=== PATIENT | female | born 1955 | race Caucasian/White ===

== ENCOUNTER → 2022-12-25 | Outpatient (CLI) | payer MEDICARE ==
[2022-12-25 15:38] LABS: BASO # 0.1 10^3/uL (0.0-0.2); BASO % 0.8 % (0.0-1.0); EOS # 0.2 10^3/uL (0.0-0.5); EOS % 2.6 % (0.0-3.0); HEMATOCRIT 44.6 % (36.0-47.0); HEMOGLOBIN 13.9 g/dl (12.0-15.5); LYMPH # 1.7 10^3/uL (1.5-5.0); LYMPH % 20.1 % (24.0-44.0); MEAN CORPUSCULAR HEMOGLOBIN 30.8 pg (27.0-33.0); MEAN CORPUSCULAR HGB CONC 31.2 g/dl (32.0-36.5); MEAN CORPUSCULAR VOLUME 98.7 fl (80.0-96.0); MONO # 0.9 10^3/uL (0.0-0.8); MONO % 10.8 % (2.0-8.0); NEUTROPHILS # 5.4 10^3/uL (1.5-8.5); NEUTROPHILS % 65.2 % (36.0-66.0); PLATELET COUNT, AUTOMATED 262 10^3/uL (150-450); RED BLOOD COUNT 4.52 10^6/uL (4.00-5.40); WHITE BLOOD COUNT 8.3 10^3/uL (4.0-10.0)
[2022-12-25 15:52] LABS: INR 0.95; PROTHROMBIN TIME 12.9 SECONDS (12.5-14.5)
[2022-12-25 16:03] LABS: BLOOD UREA NITROGEN 15 MG/DL (9-23); CALCIUM LEVEL 9.4 MG/DL (8.3-10.6); CARBON DIOXIDE LEVEL 34 MMOL/L (20-31); CHLORIDE LEVEL 104 MMOL/L (98-107); CREATININE FOR GFR 0.69 MG/DL (0.55-1.30); GLOMERULAR FILTRATION RATE > 60.0 (>45); GLUCOSE, FASTING 81 MG/DL (74-106); POTASSIUM SERUM 4.4 MMOL/L (3.5-5.1); SODIUM LEVEL 142 MMOL/L (136-145)
== END ==
LOC: M PLALAB 14:54
PROVIDERS: ATTEND Family Medicine
DX: Z01.810 Encounter for preprocedural cardiovascular examination (principal)

== ENCOUNTER 2023-01-07 15:20 | Observation (INO) | payer MEDICARE, OTHER ==
[~2023-01-07] VITALS: Ht 165.1 cm; Wt 122.5 kg
[2023-01-07 16:27] LABS: BASO # 0.1 10^3/uL (0.0-0.2); BASO % 0.5 % (0.0-1.0); EOS # 0.1 10^3/uL (0.0-0.5); EOS % 0.7 % (0.0-3.0); HEMATOCRIT 41.3 % (36.0-47.0); HEMOGLOBIN 13.1 g/dl (12.0-15.5); LYMPH # 1.2 10^3/uL (1.5-5.0); LYMPH % 7.3 % (24.0-44.0); MEAN CORPUSCULAR HEMOGLOBIN 30.8 pg (27.0-33.0); MEAN CORPUSCULAR HGB CONC 31.7 g/dl (32.0-36.5); MEAN CORPUSCULAR VOLUME 96.9 fl (80.0-96.0); MONO # 1.4 10^3/uL (0.0-0.8); MONO % 8.9 % (2.0-8.0); NEUTROPHILS # 13.2 10^3/uL (1.5-8.5); NEUTROPHILS % 82.1 % (36.0-66.0); PLATELET COUNT, AUTOMATED 230 10^3/uL (150-450); RED BLOOD COUNT 4.26 10^6/uL (4.00-5.40); WHITE BLOOD COUNT 16.1 10^3/uL (4.0-10.0)
[2023-01-07 16:54] LABS: LIPASE 19 U/L (12-53)
[2023-01-07 16:57] LABS: ALBUMIN 3.4 G/DL (3.2-5.2); ALKALINE PHOSPHATASE 79 U/L (46-116); ALT/SGPT 14 U/L (7.0-40); AST/SGOT 12 U/L (<34); BILIRUBIN,DIRECT 0.3 MG/DL (<0.4); BILIRUBIN,TOTAL 0.9 MG/DL (0.3-1.2); BLOOD UREA NITROGEN 14 MG/DL (9-23); CALCIUM LEVEL 8.9 MG/DL (8.3-10.6); CARBON DIOXIDE LEVEL 28 MMOL/L (20-31); CHLORIDE LEVEL 103 MMOL/L (98-107); CREATININE FOR GFR 0.77 MG/DL (0.55-1.30); GLOMERULAR FILTRATION RATE > 60.0 (>45); GLUCOSE, FASTING 102 MG/DL (74-106); POTASSIUM SERUM 4.5 MMOL/L (3.5-5.1); SODIUM LEVEL 140 MMOL/L (136-145); TOTAL PROTEIN 6.8 G/DL (5.7-8.2)
[2023-01-07] MEDS ORDERED: GABA600T4 PO (18:41)
[2023-01-07] MEDS ORDERED: TRAM50TA2 PO (18:41)
[2023-01-07] MEDS ORDERED: VENTAER INH (18:41)
[2023-01-07] MEDS ORDERED: SIMV20TA22 PO (18:41)
[2023-01-07] MEDS ORDERED: HYDR12CA PO (18:41)
[2023-01-07] MEDS ORDERED: NABU-73 PO (18:41)
[2023-01-07] MEDS ORDERED: FLUT1INH3 INH (18:41)
[2023-01-07] MEDS ORDERED: ONDANSETRON 4MG 2ML VIAL IV ONE (20:50)
[2023-01-07] MEDS ORDERED: MORPHINE 4 MG/ML 1ML VIAL IV ONE (20:50)
[2023-01-07] MEDS ORDERED: MORPHINE 4 MG/ML 1ML VIAL As Ordered ONE (20:52)
[2023-01-07] MEDS ORDERED: ONDANSETRON 4MG 2ML VIAL As Ordered ONE ×2 (20:52→23:46)
[2023-01-07] MEDS ORDERED: NS 1,000 ML IV ONE (21:00)
[2023-01-07] MEDS ORDERED: ISOVUE-370 76% 100ML VIAL As Ordered ONE (21:23)
[2023-01-07] MEDS ORDERED: PIPERACILLIN/TAZOBACTAM SOD 3.375 GM in D5W MINI-BAG PLUS 50 ML IV ONE (22:55)
[2023-01-07] MEDS ORDERED: LIDOCAINE 2% INJ 100 MG/5 ML SYRINGE As Ordered ONE (23:34)
[2023-01-07] MEDS ORDERED: propofoL 200 MG/20 ML VIAL As Ordered ONE (23:34)
[2023-01-07] MEDS ORDERED: ROCURONIUM BROMIDE 50MG/5ML VIAL As Ordered ONE (23:34)
[2023-01-07] MEDS ORDERED: fentaNYL 250 MCG/5 ML INJECTION As Ordered ONE (23:35)
[2023-01-07] MEDS ORDERED: MIDAZOLAM INJ 2MG/2ML VIAL As Ordered ONE (23:35)
[2023-01-07] MEDS ORDERED: LIDOCAINE 2% 100MG/5ML SDV (FOR ANES.) As Ordered ONE (23:37)
[2023-01-07] MEDS ORDERED: SUGAMMADEX SODIUM 500 MG/5 ML VIAL (BRIDION) As Ordered ONE (23:46)
[2023-01-07] MEDS ORDERED: ACETAMINOPHEN 1000MG 100ML IV BAG As Ordered ONE (23:46)
[2023-01-07] MEDS ORDERED: KETOROLAC 60MG 2ML VIAL As Ordered ONE (23:46)
[2023-01-07 23:54] LABS: RSV AMPLIFICATION NEGATIVE (NEGATIVE)
[2023-01-08] VITALS (8 sets, daily range): BP systolic 126–147; BP diastolic 62–81; TEMP 97.2–98.1; O2SAT 90–94
[2023-01-08] MEDS ORDERED: LABETALOL 100MG/20ML VIAL As Ordered ONE (01:09)
[2023-01-08] MEDS: NS 1,000 ML IV SCH ×3 (02:30→13:45)
[2023-01-08] MEDS ORDERED: MEPERIDINE 25 MG/ML 1ML VIAL IV PRN (03:30)
[2023-01-08] MEDS ORDERED: fentaNYL 100 MCG/2 ML INJECTION IV PRN (03:30)
[2023-01-08] MEDS ORDERED: LR 1,000 ML IV SCH (03:30)
[2023-01-08] MEDS ORDERED: METOCLOPRAMIDE INJ 10MG/2ML VIAL IV PRN (03:30)
[2023-01-08] MEDS ORDERED: ONDANSETRON 4MG 2ML VIAL IV PRN (03:30)
[2023-01-08] MEDS ORDERED: PERCOCET 5MG/325MG TAB PO PRN (03:30)
[2023-01-08] MEDS ORDERED: MORPHINE 4 MG/ML 1ML VIAL IV PRN (03:45)
[2023-01-08] MEDS ORDERED: MORPHINE 2 MG/ML 1ML VIAL IV PRN (03:45)
[2023-01-08] MEDS: PIPERACILLIN/TAZOBACTAM SOD 3.375 GM in D5W MINI-BAG PLUS 50 ML IV SCH ×2 (05:25→11:19)
[2023-01-08] MEDS: KETOROLAC 30 MG/ML 1ML VIAL IV SCH ×2 (06:24→11:20)
[2023-01-08] MEDS ORDERED: ADVI200T PO (08:48)
[2023-01-08] MEDS ORDERED: HOME MED LIST COMPLETE! XX SCH (08:50)
== END 2023-01-08 16:31 | disposition home or self-care (01) ==
LOC: M ED 15:20 → INTOOBSV 15:21 → M PM&R 15:21 → M ED 23:57 → M PM&R 01-08 03:00 → UNDOADMIN 01-08 03:00 → M PM&R 01-08 03:21 → M MSPAV 01-08 03:21 → UNDODISIN 01-08 04:41
PROVIDERS: ADMIT Surgery; ATTEND Surgery
DX: K35.30 Acute appendicitis with localized peritonitis, without perforation or gangrene (principal); M25.50 Pain in unspecified joint; J45.909 Unspecified asthma, uncomplicated; R42 Dizziness and giddiness; G47.33 Obstructive sleep apnea (adult) (pediatric); M54.9 Dorsalgia, unspecified; R51.9 Headache, unspecified; Z88.1 Allergy status to other antibiotic agents; Z79.899 Other long term (current) drug therapy; Z96.82 Presence of neurostimulator
CPT/HCPCS: 36415; 44970; 74177; 80048; 80076; 83605; 83690; 85025; 87040; 87631; 88304; 96365; 96374; 96375; 96376; 99284; G0378; J0131; J0665; J1100; J1885; J1920; J2250; J2405; J2543; J3010; Q9967

== ENCOUNTER → 2023-02-24 | Outpatient (CLI) | payer MEDICARE, OTHER ==
[~2023-02-24] MED LIST: ADVI200T PO; FLUT1INH3 INH; GABA600T4 PO; HYDR12CA PO; NABU-73 PO; SIMV20TA22 PO; TRAM50TA2 PO; VENTAER INH
== END ==
LOC: M CARPUL 08:44 → EDUNIT# 09:30
PROVIDERS: ATTEND Family Medicine
DX: R01.1 Cardiac murmur, unspecified (principal)

== ENCOUNTER → 2023-04-14 | Outpatient (CLI) | payer MEDICARE, OTHER ==
[2023-04-14 16:58] LABS: BLOOD UREA NITROGEN 18 MG/DL (9-23); CREATININE FOR GFR 0.81 MG/DL (0.55-1.30); GLOMERULAR FILTRATION RATE > 60.0 (>45)
== END ==
LOC: M PLALAB 14:50
PROVIDERS: ATTEND Pain Medicine Interventional Pain Medicine
DX: M96.1 Postlaminectomy syndrome, not elsewhere classified (principal)

== ENCOUNTER → 2023-04-21 | Outpatient (CLI) | payer MEDICARE, OTHER ==
[~2023-04-21] MED LIST changes: +ISOVUE-370 76% 100ML VIAL As Ordered ONE
== END ==
LOC: M RAD 12:44
PROVIDERS: ATTEND Pain Medicine Interventional Pain Medicine
DX: M96.1 Postlaminectomy syndrome, not elsewhere classified (principal)
CPT/HCPCS: 72132; Q9967

== ENCOUNTER → 2023-05-20 | Outpatient (CLI) | payer MEDICARE, OTHER ==
[~2023-05-20] MED LIST changes: -ISOVUE-370 76% 100ML VIAL As Ordered ONE
== END ==
LOC: M PLAIMG 13:01
PROVIDERS: ATTEND Family Medicine
DX: R05.1 Acute cough (principal)

== ENCOUNTER → 2023-06-22 | Outpatient (CLI) | payer MEDICARE | LOC: M CARPUL 09:31 | PROVIDERS: ATTEND Family Medicine | DX: J45.909 Unspecified asthma, uncomplicated (principal) ==

== ENCOUNTER → 2023-07-29 | Outpatient (REF) | payer MEDICARE | LOC: EEVIPCON 16:28 → M LAB REF 16:28 | PROVIDERS: ATTEND Podiatrist | DX: L03.039 Cellulitis of unspecified toe (principal) ==

== ENCOUNTER 2023-08-24 10:38 | Inpatient (IN) | payer MEDICARE ==
[2023-08-24] VITALS (7 sets, daily range): BP systolic 106–142; BP diastolic 54–77; TEMP 99–101.3; O2SAT 88–93
[~2023-08-24] VITALS: Ht 165.1 cm; Wt 114.0 kg
[2023-08-24 11:57] LABS: RSV AMPLIFICATION NEGATIVE (NEGATIVE)
[2023-08-24] MEDS: NS 1,000 ML IV ONE ×2 (13:22→17:41)
[2023-08-24] MEDS: MORPHINE 4 MG/ML 1ML VIAL IV ONE (13:22)
[2023-08-24 13:42] LABS: ERYTHROCYTE SEDIMENTATION RATE > 130 mm/hr (0-30)
[2023-08-24 13:58] LABS: ALBUMIN 3.1 G/DL (3.2-5.2); ALKALINE PHOSPHATASE 95 U/L (46-116); ALT/SGPT 60 U/L (7.0-40); AST/SGOT 38 U/L (<34); BILIRUBIN,DIRECT 0.2 MG/DL (<0.4); BILIRUBIN,TOTAL 0.5 MG/DL (0.3-1.2); BLOOD UREA NITROGEN 17 MG/DL (9-23); CALCIUM LEVEL 8.4 MG/DL (8.3-10.6); CARBON DIOXIDE LEVEL 28 MMOL/L (20-31); CHLORIDE LEVEL 100 MMOL/L (98-107); CREATININE FOR GFR 0.65 MG/DL (0.55-1.30); GLOMERULAR FILTRATION RATE > 60.0 (>45); GLUCOSE, FASTING 140 MG/DL (74-106); POTASSIUM SERUM 3.5 MMOL/L (3.5-5.1); SODIUM LEVEL 137 MMOL/L (136-145); TOTAL PROTEIN 6.6 G/DL (5.7-8.2)
[2023-08-24 15:18] LABS: BASO # 0.1 10^3/uL (0.0-0.2); BASO % 0.7 % (0.0-1.0); EOS # 0.1 10^3/uL (0.0-0.5); EOS % 1.3 % (0.0-3.0); HEMATOCRIT 42.1 % (36.0-47.0); HEMOGLOBIN 13.5 g/dl (12.0-15.5); LYMPH # 0.8 10^3/uL (1.5-5.0); LYMPH % 7.7 % (24.0-44.0); MEAN CORPUSCULAR HEMOGLOBIN 30.2 pg (27.0-33.0); MEAN CORPUSCULAR HGB CONC 32.1 g/dl (32.0-36.5); MEAN CORPUSCULAR VOLUME 94.2 fl (80.0-96.0); MONO # 0.7 10^3/uL (0.0-0.8); NEUTROPHILS # 8.5 10^3/uL (1.5-8.5); NEUTROPHILS % 82.3 % (36.0-66.0); PLATELET COUNT, AUTOMATED 199 10^3/uL (150-450); RED BLOOD COUNT 4.47 10^6/uL (4.00-5.40); WHITE BLOOD COUNT 10.4 10^3/uL (4.0-10.0)
[2023-08-24] MEDS ORDERED: VANCOMYCIN HCL 2,000 MG in IV FLUID PLACE HOLDER 1 EA IV ONE (15:25)
[2023-08-24] MEDS ORDERED: ENOXAPARIN 40MG/0.4ML SYRINGE (J1650 PER 10MG) SC ONE ×2 (15:45)
[2023-08-24] MEDS ORDERED: IPRATROPIUM 0.5MG/ALBUTEROL 2.5MG INH SOL UD 3ML (DUONEB) NEB PRN (15:50)
[2023-08-24] MEDS ORDERED: KETOROLAC 30 MG/ML 1ML VIAL IV ONE (15:50)
[2023-08-24] MEDS: VANCOMYCIN HCL 1,000 MG, VIAL MATE ADAPTER 1 EACH in D5W 250 ML IV ONE ×2 (15:52→17:44)
[2023-08-24] MEDS ORDERED: GABAPENTIN 400MG CAP PO SCH (16:00)
[2023-08-24] MEDS ORDERED: NS 1,000 ML IV ONE (16:20)
[2023-08-24] MEDS ORDERED: ACETAMINOPHEN TAB 650MG DOSE (2X325MG) PO PRN (16:20)
[2023-08-24] MEDS ORDERED: ONDANSETRON 4MG 2ML VIAL IV PRN (16:20)
[2023-08-24] MEDS ORDERED: KETOROLAC 30 MG/ML 1ML VIAL IV PRN ×2 (16:25→22:00)
[2023-08-24] MEDS ORDERED: VITA500030 PO (16:34)
[2023-08-24] MEDS ORDERED: PROB250C PO (16:34)
[2023-08-24] MEDS ORDERED: MAGN400C PO (16:34)
[2023-08-24] MEDS ORDERED: LORA-1041 PO (16:34)
[2023-08-24] MEDS ORDERED: SYMB16INH INH (16:34)
[2023-08-24] MEDS ORDERED: ACET-897 PO (16:34)
[2023-08-24] MEDS ORDERED: CVS5000S2 SL (16:34)
[2023-08-24] MEDS ORDERED: CHEL50TA2 PO (16:34)
[2023-08-24] MEDS ORDERED: MUCI30TA5 PO (16:34)
[2023-08-24] MEDS ORDERED: VITA100065 PO (16:34)
[2023-08-24] MEDS ORDERED: CALC-190 PO (16:34)
[2023-08-24] MEDS ORDERED: TUME1CAP PO (16:34)
[2023-08-24] MEDS ORDERED: VITA1TAB78 PO (16:34)
[2023-08-24] MEDS ORDERED: GLUCTAB31 PO (16:34)
[2023-08-24] MEDS ORDERED: VITA400C83 PO (16:34)
[2023-08-24] MEDS ORDERED: APPLTAB2 PO (16:34)
[2023-08-24] MEDS ORDERED: VISISOL2 OP (16:37)
[2023-08-24] MEDS ORDERED: POLY30DR2 OU (16:37)
[2023-08-24] MEDS ORDERED: [UNRECOGNIZED DRUG - CODE] MM (16:37)
[2023-08-24] MEDS ORDERED: FISH1CAP26 PO (16:56)
[2023-08-24 17:02] LABS: IRON (FE) 20 UG/DL (50-170); PERCENT SATURATION 8.1 % (13.2-45.0); TOTAL IRON BINDING CAPACITY 247 UG/DL (250-425)
[2023-08-24] MEDS ORDERED: HOME MED LIST COMPLETE! XX SCH (17:15)
[2023-08-24] MEDS ORDERED: MIDODRINE 5 MG TAB PO ONE (17:40)
[2023-08-24] MEDS ORDERED: LACTOBACILLUS ACIDOPHILUS CAP (BACID) PO SCH (18:00)
[2023-08-24] MEDS ORDERED: SODIUM CHLORIDE 0.9% 1000ML IV ONE (18:00)
[2023-08-24] MEDS: KETOROLAC 30 MG/ML 1ML VIAL IV ONE (18:07)
[2023-08-24] MEDS: LACTOBACILLUS ACIDOPHILUS CAP (BACID) PO SCH (18:08)
[2023-08-24] MEDS: GABAPENTIN 400MG CAP PO SCH (18:08)
[2023-08-24] MEDS: SODIUM CHLORIDE 0.9% 1000ML IV ONE (18:23)
[2023-08-24] MEDS: NS 1,000 ML IV SCH (18:23)
[2023-08-24] MEDS: GABAPENTIN 300 MG CAP PO SCH (18:36)
[2023-08-24] MEDS: LevoFLOXacin IV 750 MG in IV 1 EA IV ONE (18:50)
[2023-08-24 19:09] LABS: ABG BASE EXCESS 0.8 (-2.0-2.0); ABG HCO3 24.1 MMOL/L (22.0-26.0); ABG O2 SATURATION 92.2 % (95.0-99.0); ABG PARTIAL PRESSURE CO2 34.2 mmHg (35.0-45.0); ABG PARTIAL PRESSURE O2 59.7 mmHg (75.0-100.0); ABG STANDARD HCO3 25.1 MMOL/L. (22.0-26.0); ABG TOTAL CO2 25.1 MMOL/L (23.0-31.0); ABG pH (ARTERIAL) 7.465 UNITS (7.350-7.450)
[2023-08-24] MEDS: ADVAIR HFA 115/21MCG INHALER INH SCH (19:16)
[2023-08-24] MEDS ORDERED: ISOVUE-370 76% 100ML VIAL As Ordered ONE (20:28)
[2023-08-24] MEDS ORDERED: ADVAIR HFA 115/21MCG INHALER INH SCH (21:00)
[2023-08-24] MEDS ORDERED: SIMVASTATIN 20 MG TAB PO SCH (21:00)
[2023-08-24] MEDS: guaiFENesin ER TABLET 600 MG TAB PO SCH (21:54)
[2023-08-24] MEDS: ENOXAPARIN 40MG/0.4ML SYRINGE (J1650 PER 10MG) SC SCH (21:55)
[2023-08-24] MEDS: MUPIROCIN 2% OINT 22 GM TUBE TOP SCH (21:55)
[2023-08-25] VITALS (30 sets, daily range): BP systolic 104–142; BP diastolic 58–82; TEMP 97.1–98.9; O2SAT 87–96
[2023-08-25] MEDS ORDERED: VANCOMYCIN HCL 1,000 MG, VIAL MATE ADAPTER 1 EACH in D5W 250 ML IV SCH ×2
[2023-08-25] MEDS: VANCOMYCIN HCL 750 MG, VIAL MATE ADAPTER 1 EACH in D5W 250 ML IV SCH ×2 (01:09→02:48)
[2023-08-25 07:59] LABS: ERYTHROCYTE SEDIMENTATION RATE 64 mm/hr (0-30)
[2023-08-25 08:07] LABS: BASO % 0.5 % (0.0-1.0); EOS # 0.3 10^3/uL (0.0-0.5); EOS % 3.1 % (0.0-3.0); HEMATOCRIT 33.9 % (36.0-47.0); LYMPH # 0.9 10^3/uL (1.5-5.0); MEAN CORPUSCULAR HEMOGLOBIN 31.1 pg (27.0-33.0); MEAN CORPUSCULAR HGB CONC 32.7 g/dl (32.0-36.5); MONO # 0.7 10^3/uL (0.0-0.8); MONO % 8.4 % (2.0-8.0); NEUTROPHILS # 6.8 10^3/uL (1.5-8.5); NEUTROPHILS % 77.4 % (36.0-66.0); PLATELET COUNT, AUTOMATED 187 10^3/uL (150-450); RED BLOOD COUNT 3.57 10^6/uL (4.00-5.40); WHITE BLOOD COUNT 8.8 10^3/uL (4.0-10.0)
[2023-08-25 08:09] LABS: HEMOGLOBIN 11.1 g/dl (12.0-15.5)
[2023-08-25 08:23] LABS: ABG BASE EXCESS 1.2 (-2.0-2.0); ABG HCO3 25.2 MMOL/L (22.0-26.0); ABG O2 SATURATION 94.6 % (95.0-99.0); ABG PARTIAL PRESSURE CO2 38.4 mmHg (35.0-45.0); ABG PARTIAL PRESSURE O2 68.7 mmHg (75.0-100.0); ABG STANDARD HCO3 25.4 MMOL/L. (22.0-26.0); ABG TOTAL CO2 26.4 MMOL/L (23.0-31.0); ABG pH (ARTERIAL) 7.435 UNITS (7.350-7.450)
[2023-08-25 08:33] LABS: PROCALCITONIN 0.41 ng/ml
[2023-08-25 08:35] LABS: ALBUMIN 2.4 G/DL (3.2-5.2); ALKALINE PHOSPHATASE 77 U/L (46-116); ALT/SGPT 45 U/L (7.0-40); AST/SGOT 26 U/L (<34); BILIRUBIN,TOTAL 0.5 MG/DL (0.3-1.2); BLOOD UREA NITROGEN 12 MG/DL (9-23); CARBON DIOXIDE LEVEL 25 MMOL/L (20-31); CHLORIDE LEVEL 106 MMOL/L (98-107); CREATININE FOR GFR 0.57 MG/DL (0.55-1.30); GLOMERULAR FILTRATION RATE > 60.0 (>45); GLUCOSE, FASTING 122 MG/DL (74-106); POTASSIUM SERUM 3.5 MMOL/L (3.5-5.1); SODIUM LEVEL 139 MMOL/L (136-145); TOTAL PROTEIN 5.4 G/DL (5.7-8.2)
[2023-08-25] MEDS ORDERED: ENOXAPARIN 40MG/0.4ML SYRINGE (J1650 PER 10MG) SC SCH (09:00)
[2023-08-25] MEDS: THIAMINE 100 MG TAB PO SCH (10:34)
[2023-08-25] MEDS: LORATADINE 10 MG TAB PO SCH (10:34)
[2023-08-25] MEDS: ASCORBIC ACID 500 MG TAB PO SCH (10:34)
[2023-08-25] MEDS: CYANOCOBALAMIN 500 MCG TAB PO SCH (10:34)
[2023-08-25] MEDS: ONDANSETRON 4MG 2ML VIAL IV PRN (10:44)
[2023-08-25] MEDS ORDERED: LEVALBUTEROL 1.25MG 0.5ML CONCENTRATE NEB INH PRN (10:45)
[2023-08-25] MEDS: FUROSEMIDE 40MG/4ML VIAL IV ONE (10:59)
[2023-08-25] MEDS: metOLazone 2.5 MG TAB PO ONE (11:00)
[2023-08-25] MEDS: methylPREDNISolone 125MG 2ML VIAL IV ONE (11:00)
[2023-08-25] MEDS: MONTELUKAST 10 MG TAB PO SCH (11:02)
[2023-08-25] MEDS: LEVALBUTEROL 1.25MG 0.5ML CONCENTRATE NEB INH SCH (11:48)
[2023-08-25] MEDS ORDERED: methylPREDNISolone 40MG 1ML VIAL IV SCH (18:00)
[2023-08-25] MEDS: GABAPENTIN 300 MG CAP PO ONE (18:06)
[2023-08-25] MEDS: GABAPENTIN 300 MG CAP PO SCH (20:20)
[2023-08-25] MEDS: LevoFLOXacin 750 MG TABLET PO SCH (20:20)
[2023-08-25] MEDS: VANCOMYCIN HCL 1,000 MG, VIAL MATE ADAPTER 1 EACH in D5W 250 ML IV SCH (20:20)
[2023-08-25] MEDS: SIMVASTATIN 20 MG TAB PO SCH (20:21)
[2023-08-25] MEDS: ACETAMINOPHEN TAB 650MG DOSE (2X325MG) PO PRN (22:26)
[2023-08-25] MEDS: METOPROLOL 5 MG/5 ML VIAL IV STA ×2 (22:28→23:05)
[2023-08-25] MEDS: RAMELTEON 8 MG TAB (ROZEREM) PO PRN (22:29)
[2023-08-25] MEDS: METOPROLOL TART 25 MG TABLET PO ONE (23:06)
[2023-08-26] VITALS (14 sets, daily range): BP systolic 105–126; BP diastolic 51–68; TEMP 96.3–97.2; O2SAT 92–96
[2023-08-26] MEDS: METOPROLOL TART 25 MG TABLET PO SCH (08:00)
[2023-08-26] MEDS: predniSONE 20 MG TAB PO SCH (08:21)
[2023-08-26] MEDS: APIXABAN 5 MG TAB (ELIQUIS) PO SCH (08:21)
[2023-08-26] MEDS: DIGOXIN INJ 0.5 MG/2 ML AMP IV STA (08:22)
[2023-08-26 08:30] LABS: BASO % 0.1 % (0.0-1.0); HEMATOCRIT 35.1 % (36.0-47.0); HEMOGLOBIN 11.4 g/dl (12.0-15.5); LYMPH # 0.9 10^3/uL (1.5-5.0); LYMPH % 8.2 % (24.0-44.0); MEAN CORPUSCULAR HEMOGLOBIN 30.9 pg (27.0-33.0); MEAN CORPUSCULAR HGB CONC 32.5 g/dl (32.0-36.5); MEAN CORPUSCULAR VOLUME 95.1 fl (80.0-96.0); MONO # 0.9 10^3/uL (0.0-0.8); MONO % 8.7 % (2.0-8.0); NEUTROPHILS # 8.9 10^3/uL (1.5-8.5); NEUTROPHILS % 82.3 % (36.0-66.0); PLATELET COUNT, AUTOMATED 220 10^3/uL (150-450); RED BLOOD COUNT 3.69 10^6/uL (4.00-5.40); WHITE BLOOD COUNT 10.8 10^3/uL (4.0-10.0)
[2023-08-26 08:38] LABS: ERYTHROCYTE SEDIMENTATION RATE 106 mm/hr (0-30)
[2023-08-26 09:10] LABS: PROCALCITONIN 0.25 ng/ml
[2023-08-26 09:21] LABS: ALBUMIN 2.4 G/DL (3.2-5.2); ALKALINE PHOSPHATASE 70 U/L (46-116); ALT/SGPT 48 U/L (7.0-40); AST/SGOT 18 U/L (<34); BILIRUBIN,TOTAL 0.3 MG/DL (0.3-1.2); BLOOD UREA NITROGEN 18 MG/DL (9-23); CALCIUM LEVEL 7.8 MG/DL (8.3-10.6); CARBON DIOXIDE LEVEL 34 MMOL/L (20-31); CHLORIDE LEVEL 101 MMOL/L (98-107); CREATININE FOR GFR 0.63 MG/DL (0.55-1.30); GLOMERULAR FILTRATION RATE > 60.0 (>45); GLUCOSE, FASTING 204 MG/DL (74-106); POTASSIUM SERUM 3.2 MMOL/L (3.5-5.1); SODIUM LEVEL 138 MMOL/L (136-145); TOTAL PROTEIN 5.9 G/DL (5.7-8.2)
[2023-08-26] MEDS ORDERED: CALCIUM CHLORIDE 10% 1 GM in D5W 100 ML IV ONE (12:35)
[2023-08-26] MEDS: CALCIUM CHLORIDE 10% 1 GM in D5W 100 ML IV ONE (15:18)
[2023-08-26] MEDS ORDERED: PILL CUTTER 1 EACH XX PRN (16:30)
[2023-08-26] MEDS: POTASSIUM CHLORIDE 10MEQ SR TABLET PO ONE (17:32)
[2023-08-26] MEDS: MIDODRINE 5 MG TAB PO ONE (17:32)
[2023-08-26] MEDS: metOLazone 5 MG TAB PO ONE (17:33)
[2023-08-26] MEDS: FUROSEMIDE 20MG/2ML VIAL IV ONE (17:34)
[2023-08-27] VITALS (18 sets, daily range): BP systolic 106–133; BP diastolic 57–100; TEMP 96.4–98; O2SAT 88–98
[2023-08-27 05:37] LABS: BASO % 0.2 % (0.0-1.0); EOS % 0.3 % (0.0-3.0); HEMATOCRIT 35.6 % (36.0-47.0); HEMOGLOBIN 11.5 g/dl (12.0-15.5); LYMPH # 1.4 10^3/uL (1.5-5.0); LYMPH % 11.7 % (24.0-44.0); MEAN CORPUSCULAR HEMOGLOBIN 30.4 pg (27.0-33.0); MEAN CORPUSCULAR HGB CONC 32.3 g/dl (32.0-36.5); MEAN CORPUSCULAR VOLUME 94.2 fl (80.0-96.0); MONO # 1.2 10^3/uL (0.0-0.8); MONO % 9.8 % (2.0-8.0); NEUTROPHILS # 9.4 10^3/uL (1.5-8.5); PLATELET COUNT, AUTOMATED 289 10^3/uL (150-450); RED BLOOD COUNT 3.78 10^6/uL (4.00-5.40); WHITE BLOOD COUNT 12.2 10^3/uL (4.0-10.0)
[2023-08-27 05:45] LABS: ERYTHROCYTE SEDIMENTATION RATE 99 mm/hr (0-30)
[2023-08-27 06:05] LABS: ALBUMIN 2.5 G/DL (3.2-5.2); ALKALINE PHOSPHATASE 76 U/L (46-116); ALT/SGPT 69 U/L (7.0-40); AST/SGOT 32 U/L (<34); BILIRUBIN,TOTAL 0.3 MG/DL (0.3-1.2); BLOOD UREA NITROGEN 22 MG/DL (9-23); CALCIUM LEVEL 8.9 MG/DL (8.3-10.6); CARBON DIOXIDE LEVEL 32 MMOL/L (20-31); CHLORIDE LEVEL 102 MMOL/L (98-107); CREATININE FOR GFR 0.63 MG/DL (0.55-1.30); GLOMERULAR FILTRATION RATE > 60.0 (>45); GLUCOSE, FASTING 174 MG/DL (74-106); POTASSIUM SERUM 3.3 MMOL/L (3.5-5.1); SODIUM LEVEL 140 MMOL/L (136-145); TOTAL PROTEIN 5.9 G/DL (5.7-8.2)
[2023-08-27 06:12] LABS: PROCALCITONIN 0.18 ng/ml
[2023-08-27 09:02] LABS: MAGNESIUM LEVEL 1.9 MG/DL (1.8-2.4)
[2023-08-27] MEDS: MIDODRINE 5 MG TAB PO ONE ×2 (12:38→17:47)
[2023-08-27] MEDS: metOLazone 2.5 MG TAB PO ONE (12:38)
[2023-08-27] MEDS: DIGOXIN INJ 0.5 MG/2 ML AMP IV STA (12:39)
[2023-08-27] MEDS: POTASSIUM CHLORIDE 10MEQ SR TABLET PO SCH (12:39)
[2023-08-27] MEDS: MAG SULF 1GM/100ML (MAG RUN) 1 GM in IV 1 EA IV ONE (12:40)
[2023-08-27] MEDS: FUROSEMIDE 40MG/4ML VIAL IV ONE ×2 (13:41→17:47)
[2023-08-27] MEDS: metOLazone 5 MG TAB PO ONE (16:47)
[2023-08-27] MEDS: atenoloL 25 MG TAB PO ONE (16:48)
[2023-08-27] MEDS: LINEZOLID 600MG TABLET (ZYVOX) PO SCH (20:19)
[2023-08-27] MEDS: atenoloL 25 MG TAB PO SCH (20:21)
[2023-08-27 22:03] LABS: IONIZED CALCIUM 4.6 MG/DL (4.5-5.3)
[2023-08-27 22:32] LABS: MAGNESIUM LEVEL 1.7 MG/DL (1.8-2.4); POTASSIUM SERUM 3.4 MMOL/L (3.5-5.1)
[2023-08-28] VITALS (17 sets, daily range): BP systolic 102–139; BP diastolic 57–78; TEMP 97–97.8; O2SAT 88–99
[2023-08-28 05:52] LABS: BASO # 0.1 10^3/uL (0.0-0.2); BASO % 0.4 % (0.0-1.0); EOS # 0.1 10^3/uL (0.0-0.5); EOS % 0.7 % (0.0-3.0); HEMATOCRIT 40.6 % (36.0-47.0); HEMOGLOBIN 13.3 g/dl (12.0-15.5); LYMPH # 1.8 10^3/uL (1.5-5.0); LYMPH % 16.2 % (24.0-44.0); MEAN CORPUSCULAR HEMOGLOBIN 30.4 pg (27.0-33.0); MEAN CORPUSCULAR HGB CONC 32.8 g/dl (32.0-36.5); MEAN CORPUSCULAR VOLUME 92.9 fl (80.0-96.0); MONO # 1.4 10^3/uL (0.0-0.8); MONO % 12.4 % (2.0-8.0); NEUTROPHILS # 7.7 10^3/uL (1.5-8.5); NEUTROPHILS % 68.4 % (36.0-66.0); PLATELET COUNT, AUTOMATED 368 10^3/uL (150-450); RED BLOOD COUNT 4.37 10^6/uL (4.00-5.40); WHITE BLOOD COUNT 11.2 10^3/uL (4.0-10.0)
[2023-08-28 06:13] LABS: BLOOD UREA NITROGEN 27 MG/DL (9-23); CALCIUM LEVEL 9.1 MG/DL (8.3-10.6); CARBON DIOXIDE LEVEL 36 MMOL/L (20-31); CHLORIDE LEVEL 100 MMOL/L (98-107); CREATININE FOR GFR 0.71 MG/DL (0.55-1.30); DIGOXIN LEVEL 0.5 NG/ML (0.8-2.0); GLOMERULAR FILTRATION RATE > 60.0 (>45); GLUCOSE, FASTING 135 MG/DL (74-106); MAGNESIUM LEVEL 1.8 MG/DL (1.8-2.4); POTASSIUM SERUM 3.1 MMOL/L (3.5-5.1); SODIUM LEVEL 143 MMOL/L (136-145)
[2023-08-28 10:10] LABS: PROCALCITONIN 0.13 ng/ml
[2023-08-28] MEDS: POTASSIUM CHLORIDE 10MEQ SR TABLET PO ONE (13:09)
[2023-08-28] MEDS: atenoloL 50 MG TAB PO SCH (15:39)
[2023-08-29] VITALS: O2SAT 95
[2023-08-29 01:35] VITALS: BP 110/62; TEMP 97.9; O2SAT 91
[2023-08-29 05:05] VITALS: BP 128/85; TEMP 97.5; O2SAT 97
[2023-08-29 06:48] LABS: BASO % 0.3 % (0.0-1.0); EOS # 0.1 10^3/uL (0.0-0.5); EOS % 0.6 % (0.0-3.0); HEMATOCRIT 40.4 % (36.0-47.0); HEMOGLOBIN 13.1 g/dl (12.0-15.5); LYMPH # 1.9 10^3/uL (1.5-5.0); LYMPH % 13.4 % (24.0-44.0); MEAN CORPUSCULAR HEMOGLOBIN 30.4 pg (27.0-33.0); MEAN CORPUSCULAR HGB CONC 32.4 g/dl (32.0-36.5); MEAN CORPUSCULAR VOLUME 93.7 fl (80.0-96.0); MONO # 1.6 10^3/uL (0.0-0.8); MONO % 11.3 % (2.0-8.0); NEUTROPHILS # 10.3 10^3/uL (1.5-8.5); NEUTROPHILS % 72.9 % (36.0-66.0); PLATELET COUNT, AUTOMATED 388 10^3/uL (150-450); RED BLOOD COUNT 4.31 10^6/uL (4.00-5.40); WHITE BLOOD COUNT 14.1 10^3/uL (4.0-10.0)
[2023-08-29 07:16] LABS: BLOOD UREA NITROGEN 28 MG/DL (9-23); CALCIUM LEVEL 8.9 MG/DL (8.3-10.6); CARBON DIOXIDE LEVEL 34 MMOL/L (20-31); CHLORIDE LEVEL 97 MMOL/L (98-107); CREATININE FOR GFR 0.74 MG/DL (0.55-1.30); GLOMERULAR FILTRATION RATE > 60.0 (>45); GLUCOSE, FASTING 116 MG/DL (74-106); MAGNESIUM LEVEL 1.9 MG/DL (1.8-2.4); SODIUM LEVEL 137 MMOL/L (136-145)
[2023-08-29 08:12] LABS: ERYTHROCYTE SEDIMENTATION RATE 115 mm/hr (0-30)
[2023-08-29] MEDS ORDERED: BACI1CAP PO (08:21)
[2023-08-29] MEDS ORDERED: SELF1KIT MC (08:21)
[2023-08-29] MEDS ORDERED: LINE1TAB6 PO (08:21)
[2023-08-29] MEDS ORDERED: ELIQ5TAB PO (08:21)
[2023-08-29] MEDS ORDERED: ATEN100T PO (08:21)
[2023-08-29] MEDS ORDERED: LEVO1TAB40 PO (08:21)
[2023-08-29 08:26] LABS: PROCALCITONIN 0.07 ng/ml
[2023-08-29 08:38] VITALS: BP 150/88
[2023-08-29] MEDS: atenoloL 50 MG TAB PO ONE (08:38)
[2023-08-29] MEDS: MIDODRINE 5 MG TAB PO ONE (08:54)
[2023-08-29 09:30] VITALS: O2SAT 93
== END 2023-08-29 11:15 | disposition home or self-care (01) | DRG 871 ==
LOC: M ED 10:38 → M MSPAV 15:43 → ENRESERV 15:57 → M ED 16:44 → M PCU 19:15 → M MSPAV 08-29 01:29
PROVIDERS: ADMIT General Practice; ATTEND General Practice
PROC: B246ZZZ Ultrasonography of Right and Left Heart (ICD-10-PCS; principal; 2023-08-27)
DX: A41.02 Sepsis due to Methicillin resistant Staphylococcus aureus (principal); J96.01 Acute respiratory failure with hypoxia; J15.212 Pneumonia due to Methicillin resistant Staphylococcus aureus; J45.41 Moderate persistent asthma with (acute) exacerbation; Z68.41 Body mass index [BMI] 40.0-44.9, adult; E11.51 Type 2 diabetes mellitus with diabetic peripheral angiopathy without gangrene; I73.9 Peripheral vascular disease, unspecified; M48.061 Spinal stenosis, lumbar region without neurogenic claudication; G43.909 Migraine, unspecified, not intractable, without status migrainosus; G47.33 Obstructive sleep apnea (adult) (pediatric); L40.9 Psoriasis, unspecified; M71.22 Synovial cyst of popliteal space [Baker], left knee; I10 Essential (primary) hypertension; E11.42 Type 2 diabetes mellitus with diabetic polyneuropathy; E66.01 Morbid (severe) obesity due to excess calories; L03.032 Cellulitis of left toe; R74.01 Elevation of levels of liver transaminase levels; R19.7 Diarrhea, unspecified; T37.0X5A Adverse effect of sulfonamides, initial encounter; D64.9 Anemia, unspecified; E88.09 Other disorders of plasma-protein metabolism, not elsewhere classified; I08.1 Rheumatic disorders of both mitral and tricuspid valves; I48.91 Unspecified atrial fibrillation; E87.6 Hypokalemia; E83.51 Hypocalcemia; E87.70 Fluid overload, unspecified; K76.0 Fatty (change of) liver, not elsewhere classified; Z90.79 Acquired absence of other genital organ(s); G89.29 Other chronic pain; Z88.1 Allergy status to other antibiotic agents; K76.1 Chronic passive congestion of liver; Z79.899 Other long term (current) drug therapy; Z90.49 Acquired absence of other specified parts of digestive tract; Z11.52 Encounter for screening for COVID-19

== ENCOUNTER → 2024-04-06 | Outpatient (CLI) | payer MEDICARE ==
[~2024-04-06] MED LIST changes: +ACET-897 PO; +APPLTAB2 PO; +ATEN100T PO; +BACI1CAP PO; +CALC-190 PO; +CHEL50TA2 PO; +CVS5000S2 SL; +E-401CAP2 PO; +ELIQ5TAB PO; +FISH1CAP26 PO; +GABA-1490 PO; -GABA600T4 PO; +GLUCTAB31 PO; +LEVO1TAB40 PO; +LINE1TAB6 PO; +LORA-1041 PO; +MAGN400C PO; +MUCI30TA5 PO; +POLY30DR2 OU; +PROB250C PO; +SELF1KIT MC; +SYMB16INH INH; +TUME1CAP PO; +VISISOL2 OP; +VITA100065 PO; +VITA1TAB78 PO; +VITA500030 PO; +[UNRECOGNIZED DRUG - CODE] MM
[2024-04-06 12:26] LABS: BASO # 0.1 10^3/uL (0.0-0.2); BASO % 0.9 % (0.0-1.0); EOS # 0.2 10^3/uL (0.0-0.5); EOS % 1.9 % (0.0-3.0); HEMATOCRIT 41.2 % (36.0-47.0); HEMOGLOBIN 13.3 g/dl (12.0-15.5); LYMPH # 2.1 10^3/uL (1.5-5.0); LYMPH % 22.9 % (24.0-44.0); MEAN CORPUSCULAR HEMOGLOBIN 31.8 pg (27.0-33.0); MEAN CORPUSCULAR HGB CONC 32.3 g/dl (32.0-36.5); MEAN CORPUSCULAR VOLUME 98.6 fl (80.0-96.0); MONO # 0.7 10^3/uL (0.0-0.8); MONO % 8.2 % (2.0-8.0); NEUTROPHILS % 65.8 % (36.0-66.0); PLATELET COUNT, AUTOMATED 250 10^3/uL (150-450); RED BLOOD COUNT 4.18 10^6/uL (4.00-5.40); WHITE BLOOD COUNT 9.1 10^3/uL (4.0-10.0)
[2024-04-06 12:36] LABS: INR 1.29; PARTIAL THROMBOPLASTIN TIME 37.4 SECONDS (24.8-34.2); PROTHROMBIN TIME 15.7 SECONDS (12.5-14.5)
[2024-04-06 12:40] LABS: HEMOGLOBIN A1c 5.6 % (4.0-6.0)
[2024-04-06 13:38] LABS: ALBUMIN 3.6 G/DL (3.2-5.2); ALKALINE PHOSPHATASE 84 U/L (46-116); ALT/SGPT 19 U/L (7.0-40); AST/SGOT 12 U/L (<34); BILIRUBIN,TOTAL 0.4 MG/DL (0.3-1.2); BLOOD UREA NITROGEN 15 MG/DL (9-23); CALCIUM LEVEL 9.9 MG/DL (8.3-10.6); CARBON DIOXIDE LEVEL 32 MMOL/L (20-31); CHLORIDE LEVEL 103 MMOL/L (98-107); CHOLESTEROL LEVEL 212 MG/DL (<200); CREATININE FOR GFR 0.69 MG/DL (0.55-1.30); GLOMERULAR FILTRATION RATE > 60.0 (>39); GLUCOSE, FASTING 90 MG/DL (74-106); HDL CHOLESTEROL 36.5 MG/DL (>40); LDL CHOLESTEROL 125.1 MG/DL (<100); NON-HDL-C 175.5 MG/DL; POTASSIUM SERUM 4.2 MMOL/L (3.5-5.1); SODIUM LEVEL 141 MMOL/L (136-145); TOTAL PROTEIN 7.2 G/DL (5.7-8.2); TRIGLYCERIDES LEVEL 252 MG/DL (<150)
== END ==
LOC: M PLALAB 11:28
PROVIDERS: ATTEND Family Medicine
DX: I10 Essential (primary) hypertension (principal); Z01.810 Encounter for preprocedural cardiovascular examination; E78.2 Mixed hyperlipidemia; Z13.1 Encounter for screening for diabetes mellitus; M48.00 Spinal stenosis, site unspecified; I48.0 Paroxysmal atrial fibrillation

== ENCOUNTER → 2024-06-03 | Outpatient (CLI) | payer MEDICARE ==
[~2024-06-03] MED LIST changes: +ACET-1349 PO; +ROSU5TAB49 PO; +TRAZ-252 PO
== END ==
LOC: M EKG 11:54
PROVIDERS: ATTEND Student in an Organized Health Care Education/Training Program
DX: Z01.810 Encounter for preprocedural cardiovascular examination (principal)

== ENCOUNTER → 2025-05-03 | Outpatient (CLI) | payer MEDICARE, OTHER ==
[~2025-05-03] MED LIST changes: +HYDR12.510 PO; -HYDR12CA PO
[2025-05-03 17:11] LABS: PLATELET COUNT, AUTOMATED 253 10^3/uL (150-450)
[2025-05-03 17:14] LABS: ALT/SGPT 15.0 U/L (7.0-40); AST/SGOT 18.0 U/L (<34); CALCIUM LEVEL 9.1 MG/DL (8.3-10.6); CARBON DIOXIDE LEVEL 34.0 MMOL/L (20-31); CHLORIDE LEVEL 101.0 MMOL/L (98-107); CHOLESTEROL LEVEL 182.0 MG/DL (<200); CHOLESTEROL RISK RATIO 5.48 (<5); CREATININE FOR GFR 0.73 MG/DL (0.55-1.30); GLOMERULAR FILTRATION RATE 87.9 (>39); LDL CHOLESTEROL 104.8 MG/DL (<100); NON-HDL-C 148.8 MG/DL; POTASSIUM SERUM 4.3 MMOL/L (3.5-5.1); SODIUM LEVEL 145.0 MMOL/L (136-145); TRIGLYCERIDES LEVEL 220.0 MG/DL (<150)
[2025-05-03 17:45] LABS: ESTIMATED AVERAGE GLUCOSE 128.0 MG/DL (60-110)
== END ==
LOC: M PLALAB 12:48
PROVIDERS: ATTEND Family Medicine
DX: E78.2 Mixed hyperlipidemia (principal); I10 Essential (primary) hypertension; Z68.42 Body mass index [BMI] 45.0-49.9, adult; Z79.899 Other long term (current) drug therapy